=== PATIENT | male | born 1935 | race Caucasian/White ===

== ENCOUNTER 2017-03-29 19:44 | Emergency (ER) | payer MEDICARE ==
--- NOTE | 2017-03-29 20:25 | EDM.PDOC ---
ED HPI GENERAL MEDICAL PROBLEM - General Chief Complaint: Medication Administration Stated Complaint: prescription Time Seen by Provider: 03/29/17 20:15 Source of Information: Reports: Patient - History of Present Illness INITIAL COMMENTS - FREE TEXT/NARRATIVE: Patient is a 81-year-old male with a history of chronic A. fib to which is on multaq 400 mg twice a day and Eliquis 5 mg twice a day. Patient traveled from [place] to [place] to visit his sister. They made the decision to go to [facility] to visit and he forgot these medications at her residence. He is here to obtain prescriptions for these medications to get him through the next two days while visiting. He will be returning to [place] at that time. He offers no additional complaints. - Related Data Allergies Allergy/AdvReac Type Severity Reaction Status Date / Time No Known Allergies Allergy Verified 03/29/17 19:56 Home Meds: Home Meds Apixaban [Eliquis] 5 mg PO BID #4 tablet 03/29/17 [Rx] Dronedarone HCl [Multaq] 400 mg PO BID #4 tablet 03/29/17 [Rx] Social & Family History - Tobacco Use Smoking Status *Q: Never Smoker Second Hand Smoke Exposure: No - Caffeine Use Caffeine Use: Reports: Coffee - Recreational Drug Use Recreational Drug Use: No ED ROS GENERAL - Review of Systems Review Of Systems: See Below Cardiovascular: Reports: Other (irregular heart beat) ED EXAM, GENERAL - Physical Exam Exam: See Below Exam Limited By: No Limitations General Appearance: Alert, WD/WN, No Apparent Distress Ears: Hearing Grossly Normal Nose: Normal Inspection Throat/Mouth: Normal Voice, No Airway Compromise Neck: Normal Inspection, Supple Respiratory/Chest: No Respiratory Distress, No Accessory Muscle Use Cardiovascular: Normal Peripheral Pulses Extremities: Normal Inspection Neurological: Alert, Oriented, CN II-XII Intact, Normal Cognition Psychiatric: Normal Affect, Normal Mood Skin Exam: Dry Course - Vital Signs Last Recorded V/S: Last Vital Signs Temp 97.7 F 03/29/17 19:51 Pulse 60 03/29/17 19:51 Resp 18 03/29/17 19:51 BP 145/92 H 03/29/17 19:51 Pulse Ox 98 03/29/17 19:51 - Re-Assessments/Exams Free Text/Narrative Re-Assessment/Exam: Patient traveled from [place] to [place] to visit his sister. They made the decision to travel to [facility] to visit and forgot his medications. He is requesting four tabs of multaq and Eliquis for his chronic atrial fibrillation. This will get him through the evening and tomorrow allowing him to return back to [place] the following day. Will provide these prescriptions upon discharge. Departure - Departure Time of Disposition: 20:23 Disposition: Home, Self-Care 01 Condition: Good Clinical Impression: Encounter for medication refill - Discharge Information Prescriptions: Apixaban [Eliquis] 5 mg PO BID #4 tablet Dronedarone HCl [Multaq] 400 mg PO BID #4 tablet Instructions: Medicine Refill at the Emergency Department Referrals: PCP,Not In Area [Primary Care Provider] - Forms: ED Department Discharge Additional Instructions: I have provided prescriptions for the current medications requesting. Take as prescribed. If you should have any further issues please return back to ED as needed.
== END 2017-03-29 20:40 | disposition home or self-care (01) ==
LOC: JD.ED 19:44
CPT/HCPCS: 99282; 99283